=== PATIENT | male | born 1970 | race Caucasian/White ===

== ENCOUNTER 2018-03-15 23:05 | Emergency (ER) ==
[2018-03-15 23:24] VITALS: BP 159/98; TEMP 99.9; BMI 35.2
--- NOTE | 2018-03-15 23:31 | ED.PDOC ---
General ED Provider: Dr. MAI OCAMPO-ER Chief Complaint: Extremity Pain/Injury Stated Complaint: my leg is swollen and tender --i am worried about the blood clot Time Seen by Physician: 23:29 Mode of Arrival: Walk-In Information Source: Patient Exam Limitations: No limitations Nursing and Triage Documentation Reviewed and Agree: Yes Reviewed sepsis parameters & appropriate labs ordered?: Yes System Inflammatory Response Syndrome: Not Applicable Sepsis Protocol: For patient's 13 years and over: Temp is 96.8 and below OR 101 and greater Pulse >90 BPM Resp >20/minute Acutely Altered Mental Status Are patient's symptoms suggestive of a new infection, such as: -Pneumonia -Skin, Soft Tissue -Endocarditis -UTI -Bone, Joint Infection -Implantable Device -Acute Abdominal Infection -Wound Infection -Meningitis -Blood Stream Catheter Infection -Unknown Musculoskeletal Complaint Exam - Lower Extremity Complaint/Exam Location of Pain: Reports: Left, Leg Mechanism of Injury: Reports: Trauma Onset/Duration: severaal hours Symptoms Are: Still present Onset of Pain: Reports: Immediate Initial Severity: Mild Current Severity: Mild Location: Reports: Discrete (left leg) Character: Reports: Dull, Aching Alleviating: Reports: None Aggravating: Reports: Movement, Weight bearing, Prolonged standing Able to Bear Weight: Yes Associated Signs and Symptoms: Reports: Swelling, Bruising DVT Risk Factors: Reports: Recent surgery Lower Extremity Findings: Present: Swelling, Tenderness NV Bundle Intact Distal to Injury: Yes Compartment Syndrome Risk Factors: Present: Pain Mary's Sign Present: No Differential Diagnoses: DVT Review of Systems - Review Of Systems Constitutional: Reports: No symptoms Eyes: Reports: No symptoms Ears, Nose, Mouth, Throat: Reports: No symptoms Respiratory: Reports: No symptoms Cardiac: Reports: No symptoms GI: Reports: No symptoms : Reports: No symptoms Musculoskeletal: Reports: Muscle pain Skin: Reports: No symptoms Neurological: Reports: No symptoms Endocrine: Reports: No symptoms Hematologic/Lymphatic: Reports: No symptoms All Other Systems: Reviewed and Negative Past Medical History - Past Medical History Previously Healthy: Yes Endocrine: Reports: None Cardiovascular: Reports: None Respiratory: Reports: None Hematological: Reports: None Gastrointestinal: Reports: None Genitourinary: Reports: None Neuro/Psych: Reports: None Musculoskeletal: Reports: None Cancer: Reports: None - Surgical History General Surgical History: Reports: None - Family History Family History: Reports: None - Social History Smoking Status: Never smoker Hx Substance Use: No Alcohol Screening: Occasionally - Immunizations Tetanus Shot up to Date: No Physical Exam - Physical Exam Appearance: Well-appearing, No pain distress, Well-nourished Pain Distress: Mild Eyes: KEERTHI, EOMI, Conjunctiva clear ENT: Ears normal, Nose normal, Oropharynx normal Neck: Supple Respiratory: Airway patent, Breath sounds clear, Breath sounds equal, Respirations nonlabored Cardiovascular: RRR, Pulses normal, No rub, No murmur GI/: Soft, Nontender, No masses, Bowel sounds normal, No Organomegaly Musculoskeletal: Limited strength Skin: Warm, Dry, Normal color Neurological: Sensation intact, Motor intact, Reflexes intact, Cranial nerves intact, Alert, Oriented Psychiatric: Affect appropriate, Mood appropriate Critical Care Note - Critical Care Note Total Time (mins): 0 Course - Course Orders, Labs, Meds: once i informed then we didnt have the ablity to perform u/s until the am they decided to leave ama--i didnt advise this but they decided to leave Vital Signs: Temp Pulse Resp BP Pulse Ox 03/15/18 23:07 99.9 F H 108 H 20 159/98 H 96 Departure - Departure Time of Disposition: 23:31 Disposition: AMA Discharge Problem: Leg pain Qualifiers: Laterality: left Qualified Code(s): M79.605 - Pain in left leg Instructions: Leg Pain (ED) Condition: Good Pt referred to PMD for follow-up: Yes IPMP verified?: No Additional Instructions: rtn prn Allergies/Adverse Reactions: Allergies No Known Drug Allergies Adverse Reaction (Verified 03/15/18 23:16) Home Medications: Ambulatory Orders Albuterol Sulfate [Proair Hfa] 2 puff IH Q4H PRN 07/07/13 Atorvastatin Calcium [Lipitor] 40 mg PO DAILY 05/31/16 Hydrocodone Bit/Acetaminophen [[place] 10-325] 1 tab PO PRN PRN 05/31/16 Lisinopril 40 mg PO DAILY 03/15/18 Disposition Discussed With: Patient
== END 2018-03-15 23:28 | disposition left against medical advice (07) ==
LOC: ED 23:05
DX: M79.605 Pain in left leg (principal); M79.89 Other specified soft tissue disorders
CPT/HCPCS: 99284